=== PATIENT | male | born 1975 | race Caucasian/White ===

== ENCOUNTER → 2020-05-03 | Outpatient (CLI) | payer BC ==
[~2020-05-03] MED LIST: CYCLOBENZAPRINE10 MG PO; HYDROCHLOROTHIA25 M1 PO; LISINOPRIL40 MG PO; MEDROLDOSEPACK PO; PERCOCET 5-3251 EACH PO
== END ==
LOC: M.MRI 12:58
PROVIDERS: ATTEND Family Medicine
DX: M50.122 Cervical disc disorder at C5-C6 level with radiculopathy (principal); M47.22 Other spondylosis with radiculopathy, cervical region; M48.02 Spinal stenosis, cervical region

== ENCOUNTER → 2020-06-18 | Outpatient (CLI) | payer BC ==
[~2020-06-18] MED LIST changes: +LORCET 5-325 M1 EACH PO
== END ==
LOC: M.PC 10:18
PROVIDERS: ATTEND Physical Medicine & Rehabilitation
DX: M50.123 Cervical disc disorder at C6-C7 level with radiculopathy (principal); M48.02 Spinal stenosis, cervical region; M47.22 Other spondylosis with radiculopathy, cervical region; M25.512 Pain in left shoulder

== ENCOUNTER → 2020-06-20 | Outpatient (CLI) | payer BC | LOC: M.PC 07:55 | PROVIDERS: ATTEND Physical Medicine & Rehabilitation | DX: M25.512 Pain in left shoulder (principal); M54.2 Cervicalgia; R51.9 Headache, unspecified ==

== ENCOUNTER → 2020-07-09 | Outpatient (CLI) | payer BC | END | disposition home or self-care (01) | LOC: M.PC 08:19 | PROVIDERS: ATTEND Physical Medicine & Rehabilitation | DX: M54.12 Radiculopathy, cervical region (principal); Z79.899 Other long term (current) drug therapy ==

== ENCOUNTER → 2021-08-07 | Outpatient (CLI) | payer OTHER | LOC: M.CT 11:51 | PROVIDERS: ATTEND Nurse Practitioner Family | DX: Z13.6 Encounter for screening for cardiovascular disorders (principal) ==

== ENCOUNTER → 2021-08-07 | Outpatient (CLI) | payer BC ==
--- NOTE | 2021-08-07 16:38 | 2DMMODE ---
[place] [address] 2 D/M-MODE ECHOCARDIOGRAM Name: LUTZMADDY Room: [facility]#: [id number] Admission: 08/07/21 Attend Phys: Joya Garza RN Discharge: Date of : 77 Date of Service: 08/07/21 1638 Report #: [id number] THIS REPORT FOR: cc: Kyaw Patel Adam J DO Blick,Dmitry Rodriguez MD [facility] ~ APPROVED REPORT Study performed: 08/07/2021 14:43:42 EXAM: Comprehensive 2D, Doppler, and color-flow Echocardiogram Patient Location: Out-Patient BSA: 1.96 HR: 71 bpm BP: 136/88 mmHg Other Information Study Quality: Good Indications Dyspnea 2D Dimensions IVSd: 11.31 (7-11mm) LVOT Diam: 19.99 (18-24mm) LVDd: 45.09 mm PWd: 9.90 (7-11mm) Ascending Ao: 27.45 (22-36mm) LVDs: 29.98 (25-40mm) Aortic Root: 30.21 mm Volumes Left Atrial Volume (Systole) LA ESV Index: 16.40 mL/m2 Aortic Valve AoV Peak Rakesh.: 1.23 m/s AO Peak Gr.: 6.08 mmHg LVOT Max P.61 mmHg AO Mean Gr.: 3.20 mmHg LVOT Mean P.24 mmHg LVOT Max V: 1.07 m/s AO V2 VTI: 20.40 cm LVOT Mean V: 0.69 m/s JOSÉ LUIS (VTI): 2.84 cm2 LVOT V1 VTI: 18.49 cm Mitral Valve E/A Ratio: 1.07 [place] [address] 2 D/M-MODE ECHOCARDIOGRAM Name: MADDY LUTZ Room: [facility]#: [id number] Admission: 08/07/21 Attend Phys: Joya Garza RN Discharge: Date of : 77 Date of Service: 08/07/21 1638 Report #: [id number] MV Decel. Time: 163.68 ms MV E Max Rakesh.: 0.67 m/s MV PHT: 47.47 ms MVA (PHT): 4.63 cm2 TDI E/Lateral E': 6.70 E/Medial E': 8.38 Medial E' Rakesh.: 0.08 m/s Lateral E' Rakesh.: 0.10 m/s Pulmonary Valve PV Peak Rakesh.: 0.94 m/s PV Peak Gr.: 3.50 mmHg Tricuspid Valve RAP Estimate: 5.00 mmHg TR Peak Gr.: 19.82 mmHg RVSP: 24.82 mmHg PA Pressure: 24.82 mmHg Left Ventricle The left ventricle is normal size. There is normal LV segmental wall motion. There is normal left ventricular wall thickness. Left ventricular systolic function is normal. The left ventricular ejection fraction is within the normal range. LVEF is 55-60%. The left ventricular diastolic function is normal. Right Ventricle The right ventricle is normal size. The right ventricular systolic function is normal. Atria The left atrium size is normal. The right atrium size is normal. Aortic Valve The aortic valve is normal in structure. No aortic regurgitation is present. There is no aortic valvular stenosis. Mitral Valve The mitral valve is normal in structure. There is no mitral valve regurgitation noted. No evidence of mitral valve stenosis. Tricuspid Valve The tricuspid valve is normal in structure. Mild tricuspid regurgitation. estimated pa pressure 25 [place] [address] 2 D/M-MODE ECHOCARDIOGRAM Name: MADDY LUTZ Room: [facility]#: [id number] Admission: 08/07/21 Attend Phys: Joya Garza RN Discharge: Date of : 77 Date of Service: 08/07/21 1638 Report #: [id number] The pulmonary valve is normal in structure. Mild pulmonic regurgitation. Great Vessels The aortic root is normal in size. IVC is not well visualized. Pericardium There is no pericardial effusion. <Conclusion> LVEF is 55-60%. Mild tricuspid regurgitation. estimated pa pressure 25 mm Hg <ELECTRONICALLY SIGNED> By: Dmitry Reyes MD, [facility] 08/07/21 1638 1638 1638 Dmitry Reyes MD, FACC /INF
== END ==
LOC: M.CRD 11:58
PROVIDERS: ATTEND Registered Nurse
DX: I08.8 Other rheumatic multiple valve diseases (principal)